=== PATIENT | female | born 1995 | race Caucasian/White ===

== ENCOUNTER 2023-07-10 10:58 | Inpatient (IN) | payer BC ==
[2023-07-10 11:23] VITALS: BMI 30.9
[2023-07-10] MEDS ORDERED: hydrALAZINE 20 MG/ML VIAL SLOW IVP PRN (12:15)
[2023-07-10] MEDS ORDERED: Ondansetron PF 4 MG/2 ML Vial IVP PRN ×2 (12:15→21:50)
[2023-07-10] MEDS ORDERED: fentaNYL 50 mcg/mL 1 mL Vial SLOW IVP PRN (12:15)
[2023-07-10] MEDS ORDERED: Misoprostol 200 MCG TAB PR PRN (12:15)
[2023-07-10] MEDS ORDERED: Carboprost 250 MCG/ML AMP IM PRN (12:15)
[2023-07-10] MEDS ORDERED: Lidocaine 1% (PF) 30 ML VIAL SC PRN (12:15)
[2023-07-10] MEDS ORDERED: Diphenoxylate HCl/Atropine Tablet PO PRN (12:15)
[2023-07-10] MEDS ORDERED: Methylergonovine 0.2 MG/ML VIAL IM PRN (12:15)
[2023-07-10] MEDS ORDERED: Promethazine HCl 25 MG/ML VIAL IM PRN ×2 (12:15→21:50)
[2023-07-10] MEDS ORDERED: Tranexamic Acid 1,000 MG/10 ML VIAL IVP PRN (12:15)
[2023-07-10] MEDS ORDERED: Acetaminophen 500 MG TAB PO PRN (12:15)
[2023-07-10] MEDS ORDERED: Oxytocin 30 units/NS 500 ML 500 ML IV SCH ×2 (12:15)
[2023-07-10] MEDS ORDERED: Zolpidem Tartrate 5 MG TAB PO PRN (12:15)
[2023-07-10] MEDS ORDERED: Bupivacaine PF 0.5% 30 ML VIAL ONE (14:00)
[2023-07-10] MEDS ORDERED: Bupivacaine 0.25% HCL 30 ML VIAL ONE (14:00)
[2023-07-10] MEDS: Misoprostol 100 MCG TAB VAG SCH (14:49)
[2023-07-10 15:02] LABS: Hematocrit 34.5 % (34.9-44.5); Hemoglobin 11.3 g/dL (12.0-15.5); Mean Corpuscular HGB CONC 32.8 g/dL (32.0-36.0); Mean Corpuscular Hemoglobin 28.8 pg (27.0-33.0); Mean Corpuscular Volume 87.8 fl (81.6-98.3); Mean Platelet Volume 12.2 fl (7.4-10.4); Platelet Count 208 10x3/uL (150-450); RBC Distribution Width 13.2 % (11.5-14.5); Red Blood Cell (RBC) Count 3.93 10x6/uL (3.90-5.03); White Blood Cell (WBC) Count 8.7 10x3/uL (3.5-10.5)
[2023-07-10 15:21] LABS: HBSAg Index 0.12 S/CO (0-0.99); Hep B Surf Ag - L&D Non-Reactive S/CO (NonReactive)
[2023-07-10 15:23] LABS: Syphilis Antibody Nonreactive (Nonreactive); Syphilis Antibody Index 0.05 S/CO (<1.00 Non-Reactive)
[2023-07-10] MEDS ORDERED: fentaNYL/Ropivacaine Epidural 100 ML ONE (21:13)
[2023-07-10] MEDS ORDERED: Acetaminophen 325 MG TAB PO PRN (21:50)
[2023-07-10] MEDS ORDERED: Moisturizing Cream (Eucerin) 113 GM JAR TOP PRN (21:50)
[2023-07-10] MEDS ORDERED: ePHEDrine Sulfate 50 MG/10 ML VIAL SLOW IVP PRN (21:50)
[2023-07-10] MEDS ORDERED: Naloxone HCl 0.4 mg/ml Vial IVP PRN ×2 (21:50)
[2023-07-10] MEDS ORDERED: diphenhydrAMINE 50 MG/ML VIAL IVP PRN (21:50)
[2023-07-10] MEDS ORDERED: Lactated Ringer's 500 ML IV PRN (21:50)
[2023-07-10] MEDS ORDERED: fentaNYL 2 mcg/Ropivacaine 0.2% Epidural 100 ML CADD EPIDURAL SCH (22:00)
[2023-07-10] MEDS ORDERED: Communication Order-Pharmacy FS SCH (22:00)
[2023-07-11] MEDS: Lactated Ringer's 1,000 ML IV SCH (08:35)
[2023-07-11] MEDS ORDERED: diphenhydrAMINE 25 MG CAP PO PRN (10:00)
[2023-07-11] MEDS ORDERED: Methylergonovine 0.2 MG/ML VIAL IM PRN (10:00)
[2023-07-11] MEDS ORDERED: Benzocaine-Menthol 82.5 ML CAN TOP PRN (10:00)
[2023-07-11] MEDS ORDERED: Boostrix 0.5 ML (Tdap) VIAL (>/=7 yrs of age) IM ONE (10:00)
[2023-07-11] MEDS ORDERED: Measles/Mumps/Rubella 10 MCG/0.5 ML VIAL SC ONE (10:00)
[2023-07-11] MEDS ORDERED: Bisacodyl 10 MG SUPP PR PRN (10:00)
[2023-07-11] MEDS ORDERED: hydrALAZINE 20 MG/ML VIAL SLOW IVP PRN (10:00)
[2023-07-11] MEDS ORDERED: Preparation H Ointment 28 GM TUBE PR PRN (10:00)
[2023-07-11] MEDS ORDERED: Milk Of Magnesia 30 ML UDCUP PO PRN (10:00)
[2023-07-11] MEDS: Ibuprofen 800 MG TAB PO PRN ×2 (13:03→21:35)
[2023-07-11] MEDS ORDERED: Carboprost 250 MCG/ML AMP IM SCH (15:45)
[2023-07-11] MEDS ORDERED: Acetaminophen/Codeine 30-300mg Tablet PO PRN (15:50)
[2023-07-11] MEDS ORDERED: Tranexamic Acid 1,000 MG/10 ML VIAL ONE (15:56)
[2023-07-11] MEDS ORDERED: Oxytocin 30 units/NS 500 ML 500 ML ONE (15:57)
[2023-07-11] MEDS ORDERED: Morphine 4 MG/ML VIAL ONE (16:08)
[2023-07-11] MEDS ORDERED: Ondansetron PF 4 MG/2 ML Vial IVP SCH (16:15)
[2023-07-11] MEDS ORDERED: Diphenoxylate HCl/Atropine Tablet PO SCH (16:30)
[2023-07-11] MEDS ORDERED: Morphine 2 MG/ML VIAL SLOW IVP SCH (16:30)
[2023-07-11 17:08] LABS: Hematocrit 29.1 % (34.9-44.5); Hemoglobin 9.7 g/dL (12.0-15.5)
[2023-07-11] MEDS: Docusate 100 MG CAP PO PRN (21:35)
[2023-07-12] MEDS: Misoprostol 100 MCG TAB VAG SCH ×2 (07:29→07:51)
[2023-07-12] MEDS: Lactated Ringer's 1,000 ML IV SCH ×2 (07:30→07:51)
[2023-07-12] MEDS: Ibuprofen 800 MG TAB PO PRN (07:36)
[2023-07-12] MEDS: Docusate 100 MG CAP PO PRN (07:36)
[2023-07-12 07:44] VITALS: BP 113/73; TEMP 97.6
[2023-07-12] MEDS ORDERED: Ferrous Sulfate 325 MG TAB PO SCH (08:00)
[2023-07-12] MEDS ORDERED: Prenatal Vitamin 1 TAB PO SCH (09:00)
== END 2023-07-12 15:00 | disposition home or self-care (01) | DRG 806 ==
LOC: CSHLD/OP 10:58 → CSHLD 12:07 → CSHPP 07-11 11:50
PROVIDERS: ADMIT Obstetrics & Gynecology; ATTEND Obstetrics & Gynecology
PROC: 10E0XZZ Delivery of Products of Conception, External Approach (ICD-10-PCS; principal; 2023-07-11)
PROC: 10H07YZ Insertion of Other Device into Products of Conception, Via Natural or Artificial Opening (ICD-10-PCS; 2023-07-11)
PROC: 0UQMXZZ Repair Vulva, External Approach (ICD-10-PCS; 2023-07-11)
DX: O48.0 Post-term pregnancy (principal); O72.1 Other immediate postpartum hemorrhage; Z37.0 Single live birth; Z3A.40 40 weeks gestation of pregnancy; O70.0 First degree perineal laceration during delivery
CPT/HCPCS: 36415; 51702; 85014; 85018; 85027; 86780; 86850; 86900; 86901; 87340; 99285; J2270; J2405; J2590; J3490; J7120; S0020